=== PATIENT | female | born 1935 | race Caucasian/White ===

== ENCOUNTER 2020-04-18 04:51 | Observation (INO) ==
--- NOTE | 2020-04-13 07:27 | PAT Medication Instructions ---
Medication Instructions Date of Service April 13, 2020 Home Medications bumetanide 1 mg PO QAM cholecalciferol (vitamin D3) [Vitamin D3] 50 mcg PO QAM cyanocobalamin (vitamin B-12) [Vitamin B-12] 1,000 mcg PO QAM ibuprofen [Advil] 200 mg PO Q6H PRN levothyroxine 25 mcg PO QAM lisinopril 20 mg PO QAM magnesium 250 mg PO QAM psyllium husk [Fiber-Caps (psyllium husk)] 0.52 g PO QAM ASK your surgeon for instructions ibuprofen [Advil] 200 mg PO Q6H PRN DO NOT take the morning of surgery bumetanide 1 mg PO QAM cholecalciferol (vitamin D3) [Vitamin D3] 50 mcg PO QAM cyanocobalamin (vitamin B-12) [Vitamin B-12] 1,000 mcg PO QAM lisinopril 20 mg PO QAM magnesium 250 mg PO QAM psyllium husk [Fiber-Caps (psyllium husk)] 0.52 g PO QAM Take morning of surgery With a small sip of water, OTHERWISE NOTHING TO EAT OR DRINK AFTER MIDNIGHT: levothyroxine 25 mcg PO QAM Other Notes If you have any questions please call us at [phone] or [phone] or [phone] or [phone]
--- NOTE | 2020-04-13 13:14 | Anesthesiology Consultation ---
Date of Service April 13, 2020 Assessment & Plan (1) Encounter for pre-operative examination: COVID Status: As of 04/13 assessment, patient denies travel to endemic area, known exposure/sick contacts, or symptoms of COVID19. Patient instructed that they and their household members must follow strict social distancing guidelines, wear a mask in public and avoid travel for 14 days prior to surgery. Preoperative COVID19 testing completed today (04/13) at [facility]. Patient made aware to self-isolate as much as possible between COVID testing and surgery. PCP Clearance 04/14/20 = "The patient's preop lab testing, chest x-ray report and EKG reviewed. Labs and chest x-ray report were normal/acceptable. The patient's EKG shows poor R wave progression in the precordial leads and is unchanged from EKGs reviewed from 2018 and 2016 and is considered a normal variant and acceptable for the planned Ortho surgery. The patient is cleared for the planned Ortho surgery the week of April 17." Chart Review Chart Review: Acceptable Risk for Surgery and Patient seen in Pre Admission [facility] Teaching & Discussion Instructed NPO after midnight before surgery, except medications with 15 cc of water. Medication instructions provided according to the PAT guidelines. History Surgery Operation Date: 04/18/20 07:15 Proposed Procedures p Right Anterior Total Hip Arthroplasty - Lorenzo Foss DO Height/Weight Height: 5 ft 2.5 in Weight: 71.2 kg Allergies Allergy/AdvReac Type Severity Reaction Status Date / Time Iodinated Contrast Media Allergy Hives Verified 04/07/20 09:51 latex Allergy Blister Verified 04/07/20 10:18 Penicillins Allergy "swelling Verified 04/07/20 09:51 all over" Medications Home Medications Medication Instructions Recorded Confirmed Last Taken bumetanide 1 mg PO QAM 04/07/20 04/07/20 Unknown cholecalciferol (vitamin D3) 50 mcg PO QAM 04/07/20 04/07/20 Unknown [Vitamin D3] cyanocobalamin (vitamin B-12) 1,000 mcg PO QAM 04/07/20 04/07/20 Unknown [Vitamin B-12] ibuprofen [Advil] 200 mg PO Q6H PRN 04/07/20 04/07/20 Unknown levothyroxine 25 mcg PO QAM 04/07/20 04/07/20 Unknown lisinopril 20 mg PO QAM 04/07/20 04/07/20 Unknown magnesium 250 mg PO QAM 04/07/20 04/07/20 Unknown psyllium husk [Fiber-Caps 0.52 g PO QAM 04/07/20 04/07/20 Unknown (psyllium husk)] Past Medical History Medical History Degenerative disc disease Hearing deficit BL RAMOS HTN (hypertension) Hx SBO Did not require surgical intervention, just metamucil. Hypothyroidism Osteoarthritis Osteopenia Spinal stenosis Tinnitus Exercise / Class Metabolic Activity II 4-5 Yardwork/Stairs/Walk up hill (Denies CP or SOB with 1 FOS, using cane for ambulation for hip pain) Past Family History Family History Other No family history of adverse response to anesthesia Past Surgical History Surgical History History of appendectomy History of section History of colonoscopy History of esophagogastroduodenoscopy (EGD) History of left hip replacement History of parotidectomy History of right knee joint replacement History of tonsillectomy History of total abdominal hysterectomy and bilateral salpingo-oophorectomy Nausea and vomiting after administration of anesthetic agent Past Anesthesia History No Hx of Anesthesia Complications and No Family Hx of Anesthesia Complications History of PONV No Hx of Motion Sickness and History of PONV (remote history, no issues with SAB with TKA 06/2019) Social History Smoking Status: Never smoker Do You Dip or Chew Tobacco: No Hx Alcohol Use: Yes Alcohol type: hard liquor alcohol intake frequency: 0-2 drinks per day Hx Substance Use: No substance use type: does not use Review of Systems Pt denies any recent chest pain, shortness of breath, palpitations, cough, fever, URI, or uncontrolled acid reflux. Physical Exam Vital Signs BP: 146/79 P: 74bpm SPO2: 97% RA T: 97.8 F R: 16 ENMT Mouth: + dental bridge, + dentures (partial lower) and + dental restorations (permanent bridge upper front teeth); no chipped teeth and no loose teeth Thyromental Distance: < 3.5 Finger Breadths (3) Mallampati Class: III Neck normal visual inspection; neck extension not limited Respiratory normal respiratory effort Auscultation: lungs clear to auscultation bilaterally Cardiovascular Rate/Rhythm: regular rate and regular rhythm Heart Sounds: no murmur Extremities: no edema Testing Laboratory Results 04/13/20 13:35 04/13/20 13:35 PT 10.2 Seconds (9.0-12.0) 04/13/20 13:35 INR 1.0 (0.9-1.1) 04/13/20 13:35 APTT 27.4 Seconds (21.0-31.0) 04/13/20 13:35 Hemoglobin A1c 5.6 % (4.5-5.6) 04/13/20 13:35 Blood Type O Positive 04/13/20 13:35 Antibody Screen NEGATIVE 04/13/20 13:35 UA 04/14/20: negative. Electrocardiogram Date: 04/13/20 Findings: + NSR @ (64bpm) Anterior infarct, age undetermined. No previous EKGs available in [facility] system, but faxed for EKG from PCP from 06/2019, which shows PRWP. Chest X-Ray Date: 04/13/20 Findings: + NAD
--- NOTE | 2020-04-13 14:00 | XRay Report ---
XR chest Pre-admission PA/Lat CLINICAL HISTORY: Preoperative evaluation. COMPARISON STUDY: No previous studies for comparison. FINDINGS: Lung volumes are at the lower limits of normal. Lungs are clear. There is no pneumothorax o r pleural effusion. Cardiac size is normal. Mediastinal contours are normal. There is no evidence for pulmonary edema. IMPRESSION: No acute cardiopulmonary findings. ACT 112: Negative or not required by law. Electronically signed by: Ryan Galeano M.D. 04/13/2020 1:58 PM
[2020-04-13 15:00] LABS: Basophils # (auto) 0.04 K/uL (0-0.2); Basophils % (auto) 0.8 %; Eosinophils % (auto) 3.8 %; Hematocrit (blood only) 37.5 % (37-47); Immature Granulocytes # (auto) 0.01 K/uL (0.00-0.02); Immature Granulocytes % (auto) 0.2 %; Lymphocytes # (auto) 1.93 K/uL (1.2-3.4); Lymphocytes % (auto) 36.4 %; Mean Corpuscular Hemoglobin 32.6 pg (25-34); Mean Corpuscular Hgb Conc 34.7 g/dL (32-36); Mean Platelet Volume 11.1 fL (7.4-10.4); Monocytes # (auto) 0.46 K/uL (0.11-0.59); Monocytes % (auto) 8.7 %; Neutrophils # (auto) 2.66 K/uL (1.4-6.5); Neutrophils % (auto) 50.1 %; Platelet Count 231 K/uL (130-400); RDW Coefficient of Variation 13.3 % (11.5-14.5); RDW Standard Deviation 46.2 fL (36.4-46.3); Red Blood Count 3.99 M/uL (4.2-5.4)
[2020-04-13 15:07] LABS: Albumin Level 3.9 gm/dl (3.4-5.0); BUN Creatinine Ratio 25.7 (10-20); Calcium 9.6 mg/dl (8.5-10.1); Creatinine Clr Calc Pharmacy 32.8 ml/min; Est GFR (African American) 48.3; Est GFR (Non-African American) 41.6; Potassium 4.3 mmol/L (3.5-5.1)
[2020-04-13 15:11] LABS: Partial Thromboplastin Time 27.4 Seconds (21.0-31.0); Prothrombin Time 10.2 Seconds (9.0-12.0)
[2020-04-14 05:57] LABS: Estimated Average Glucose 114 mg/dl; Hemoglobin A1C 5.6 % (4.5-5.6)
--- NOTE | 2020-04-14 12:49 | Electrocardiogram Report ---
Test Reason : Blood Pressure : / mmHG Vent. Rate : 064 BPM Atrial Rate : 064 BPM P-R Int : 174 ms QRS Dur : 066 ms QT Int : 400 ms P-R-T Axes : 077 074 068 degrees QTc Int : 412 ms Normal sinus rhythm Anterior infarct , age undetermined Abnormal ECG No previous ECGs available Confirmed by Jose Soares ([id number]) on 04/14/2020 12:49:31 PM Referred By: Lorenzo Foss Confirmed By:Jose Soares
--- NOTE | 2020-04-15 17:41 | History & Physical Report ---
Date of Service April 18, 2020 Assessment & Plan (1) Degenerative joint disease of right hip: I have indicated the patient for right anterior total hip replacement. The risks, benefits and complications of surgery were explained to the patient which include but not limited to infection, acute blood loss, DVT/PE, injury to nerves, vessels, bone, soft tissue, arthrofibrosis, chronic pain, failure of the prosthesis, hip dislocation, leg length discrepancy, need for additional surgery, cardiac and pulmonary events and . The patient wished to proceed with surgery and informed consent was obtained at this time. We will plan for 325 mg ASA BID post-operatively for DVT prophylaxis. Upon discharge the patient will be discharged home with home health services. Appropriate clearances by PCP were obtained. History of Present Illness Chief Complaint: Right hip pain/djd Primary Care Provider: Maycol Swain The patient is a 84 year old female who presents with complaints of severe right hip pain and DJD. The patient has failed outpatient conservative treatments to this point which included NSAIDs, IA corticosteroid injection, PT and a home exercise/walking program. The patient's pain and limited function have progressed to the point where they severely hinder their activities of daily living and they no longer tolerate exercise programs. They are requesting to proceed with total hip replacement surgery. Allergies Allergy/AdvReac Type Severity Reaction Status Date / Time Iodinated Contrast Media Allergy Hives Verified 04/07/20 09:51 latex Allergy Blister Verified 04/07/20 10:18 Penicillins Allergy "swelling Verified 04/07/20 09:51 all over" Home Medications Home Medications Medication Instructions Recorded Confirmed Type bumetanide 1 mg PO QAM 04/07/20 04/07/20 History cholecalciferol (vitamin D3) 50 mcg PO QAM 04/07/20 04/07/20 History [Vitamin D3] cyanocobalamin (vitamin B-12) 1,000 mcg PO QAM 04/07/20 04/07/20 History [Vitamin B-12] ibuprofen [Advil] 200 mg PO Q6H PRN 04/07/20 04/18/20 History levothyroxine 25 mcg PO QAM 04/07/20 04/18/20 History lisinopril 20 mg PO QAM 04/07/20 04/18/20 History magnesium 250 mg PO QAM 04/07/20 04/07/20 History psyllium husk [Fiber-Caps 0.52 g PO QAM 04/07/20 04/18/20 History (psyllium husk)] Past Med/Surg History Medical History Degenerative disc disease Hearing deficit BL RAMOS HTN (hypertension) Hx SBO Did not require surgical intervention, just metamucil. Hypothyroidism Osteoarthritis Osteopenia Spinal stenosis Tinnitus Surgical History History of appendectomy History of section History of colonoscopy History of esophagogastroduodenoscopy (EGD) History of left hip replacement History of parotidectomy History of right knee joint replacement History of tonsillectomy History of total abdominal hysterectomy and bilateral salpingo-oophorectomy Nausea and vomiting after administration of anesthetic agent Family History Other No family history of adverse response to anesthesia Social History Smoking Status: Never smoker Second Hand Exposure: Yes (as a child); Do You Dip or Chew Tobacco: No; Hx Alcohol Use: Yes Alcohol type: hard liquor Hx Substance Use: No Preferred Language: [place] Communication Ability: Effective Co Chairman Required: No Beliefs That Will Affect Care: None Current Living Situation: Spouse Feels Safe at Home: Yes Safety Concerns: Feels Safe At This Time Assistive Devices: Cane, Glasses and Hearing Aid - Bilateral Assistive Devices Comment: lower partial Review of Systems Review of Systems: All systems reviewed & are unremarkable except as noted in HPI & below Constitutional: as per Subjective / HPI Physical Exam Physical Exam: RLE NVSI +EHL/FHL/TA/GS SILT grossly, +2 DP pulse, compartments soft NT, limited painful ROM of the hip, antalgic gait. Constitutional: WD/WN, vitals as above Eyes: PERRL, conjunctivae normal, anicteric sclerae ENMT: external ear and nose normal, oropharynx normal Neck: trachea midline, no thyromegaly Respiratory: normal respiratory effort, lungs clear to auscultation Cardiovascular: RRR, no murmur, no edema Gastrointestinal (Abdomen): normal bowel sounds, soft, nontender, no hepatosplenomegaly Musculoskeletal: no cyanosis or clubbing, extremities motor strength 5/5 Skin: no rashes, warm and dry Neurologic: patellar DTR's 2+ bilat, sensation intact Psychiatric: A+Ox3, euthymic affect Lymphatic: no cervical or axillary lymphadenopathy Results & Data Results & Data ([facility]) Diagnostic Findings Multiple views of the hip demonstrates severe DJD with complete loss of the joint space. +osteophytes, +sclerosis, +subchondral cysts. Pre Admission Testing Addendum Laboratory Results 04/13/20 13:35 04/13/20 13:35 PT 10.2 Seconds (9.0-12.0) 04/13/20 13:35 INR 1.0 (0.9-1.1) 04/13/20 13:35 APTT 27.4 Seconds (21.0-31.0) 04/13/20 13:35 Hemoglobin A1c 5.6 % (4.5-5.6) 04/13/20 13:35 Blood Type O Positive 04/13/20 13:35 Antibody Screen NEGATIVE 04/13/20 13:35
[2020-04-18] MEDS ORDERED: TRANEXAMIC ACID 1,000 MG **IV Intra-op IV SCH (06:00)
[2020-04-18] MEDS ORDERED: ROPIVACAINE 0.5% HCL/PF 150 MG, BUPIVACAINE 0.5% MPF 30 ML, EPINEPHrine 30MG/30ML (OR U... INFIL SCH (06:00)
[2020-04-18] MEDS ORDERED: CeleBREX 200 MG CAP PO SCH (06:00)
[2020-04-18] MEDS ORDERED: LR 15ML/HR IV SCH (06:00)
[2020-04-18] MEDS ORDERED: dexAMETHasone 4 MG TAB PO SCH (06:00)
[2020-04-18] MEDS ORDERED: ACETAMINOPHEN 500 MG TAB PO SCH (06:00)
[2020-04-18] MEDS ORDERED: GABAPENTIN 300 MG CAP PO SCH (06:00)
[2020-04-18] MEDS ORDERED: TRANEXAMIC ACID 1,000 MG **IV Pre-op IV SCH (06:00)
[2020-04-18] MEDS ORDERED: METOCLOPRAMIDE HCL 10 MG TABLET PO SCH (06:00)
[2020-04-18] MEDS ORDERED: PROPOFOL IV EMULSION 10 MG/ML 20 ML VIAL IV ONE ×2 (06:24→08:45)
[2020-04-18] MEDS ORDERED: BUPIVACAINE 0.5 % 5 MG/1 ML PF 10ML VIAL ONE (06:25)
[2020-04-18] MEDS ORDERED: fentaNYL citrate 100 MCG/2 ML VIAL ONE (06:25)
[2020-04-18] MEDS ORDERED: MIDAZOLAM HCL 1 MG/ML 2ML VIAL ONE (06:25)
--- NOTE | 2020-04-18 06:57 | History & Physical Bridge Note ---
Date of Service April 18, 2020 History & Physical Bridge Note I have examined the patient, reviewed the History & Physical and in the interval since the performance of the History & Physical I have noted the following changes of clinical significance: no changes noted
[2020-04-18] MEDS ORDERED: CLINDAMYCIN 900 MG in DEXTROSE 5% 50 ML IV ONE (07:00)
[2020-04-18] MEDS ORDERED: BACITRACIN INJ 50,000 UNIT VIAL ONE (07:01)
[2020-04-18] MEDS ORDERED: ORTHO JOINT ANESTHETIC ONE (07:01)
[2020-04-18] MEDS ORDERED: ONDANSETRON INJ 2 MG/ML 2 ML VIAL IV PRN ×2 (07:01→11:14)
[2020-04-18] MEDS ORDERED: ATROPINE SULFATE 0.1 MG/ML 10ML SYR IV PRN (07:01)
[2020-04-18] MEDS ORDERED: ePHEDrine sulfate 50 MG/ML AMP IV PRN (07:01)
[2020-04-18] MEDS ORDERED: HYDROmorphone INJ 1 MG/ML SYRINGE IV PRN (07:01)
--- NOTE | 2020-04-18 09:30 | Post Operative Brief Note ---
Immediate Post Op Note v1 Date of Surgery April 18, 2020 Pre & Post Diagnosis Operation Date: 04/18/20 07:15 Pre-Op Diagnosis: Unilateral Primary Osteoarthritis, Right Hip Post-Op Diagnosis: Unilateral Primary Osteoarthritis, Right Hip I identified the patient and participated in the time-out.: Yes Procedure Operation Date: 04/18/20 07:15 Actual Procedures p Right Anterior Total Hip Arthroplasty(Right) - Lorenzo Foss DO Surgeon Lorenzo Foss DO Fish And Wildlife Biologist Giuseppe Cruz Estimated Blood Loss 185 Findings Consistent with Post-Op Diagnosis Fluids 600 cc LR Specimens femoral head Anesthesia Type Spinal MAC Complications none Disposition Disposition: Recovery Room Overlapping Procedure I was present for: the critical portions of procedure. I was immediately available: during the entire case. Back up surgeon: was not required during procedure.
--- NOTE | 2020-04-18 09:32 | Operative Report ---
Post Operative Report Pre & Post Diagnosis Operation Date: 04/18/20 07:15 Pre-Op Diagnosis: Unilateral Primary Osteoarthritis, Right Hip Post-Op Diagnosis: Unilateral Primary Osteoarthritis, Right Hip I identified the patient and participated in the time-out.: Yes Procedure Operation Date: 04/18/20 07:15 Actual Procedures p Right Anterior Total Hip Arthroplasty(Right) - Lorenzo Foss DO Surgeon Lorenzo Foss DO Cost Specialist Giuseppe Cruz Estimated Blood Loss 185 Findings Consistent with Post-Op Diagnosis Specimens Femoral headfemoral head Anesthesia Type Spinal MAC Complications none Disposition Disposition: Recovery Room Indications The patient is a 84-year-old female who presents with severe progressive right hip DJD who has failed outpatient conservative treatments. I indicated the patient for a anterior total hip replacement and the risks and benefits were explained in detail which include but not limited to infection, bleeding, blood clot, damage to surrounding bone, nerves, vessels, soft tissue, hip dislocation, failure of the prosthesis, leg length discrepancy, need for additional surgery and . The patient agreed to proceed with replacement of the hip and informed consent was obtained. Appropriate clearances were obtained. Description of Procedure COMPONENTS USED: Mar & [email or web address].usology hip system: Acetabulum size 52, femur size 6 high offset, femoral head 36+0, liner 5236, acetabular screw 25 mm x 1. DESCRIPTION OF PROCEDURE: Following satisfactory spinal anesthesia, the patient was placed supine on the OR table. The left leg was placed in the well leg chu and the right leg in the traction device. The right leg was prepared with ChloraPrep and draped sterilely. A surgical timeout was performed, patient identified and site kenny verified. Appropriate antibiotics were given. A standard anterior approach in the interval between the sartorius and tensor muscles was performed. Dissection was carried down through subcutaneous tissues. Electrocautery was utilized for hemostasis. Circumflex femoral vessels were identified, tied and ligated. The anterior capsular fat pad was removed and the capsulotomy was performed revealing the arthritic femoral neck and head. A femoral neck cut was made with reciprocating saw and the bone fragments removed. The acetabular self-retraining retractor was placed. Ac etabular reaming was completed under fluoroscopic guidance, a 52 shell was impacted into an anatomic position and secured with a dome screw. Local anesthetic was placed and following irrigation, the polyethylene liner was placed. The femur was placed into position of external rotation, extension and adduction. Femoral canal was prepared up to the size 6 high offset. Trial reduction with a 36+0 neck length head showed good soft tissue tension, leg lengths restored, and good fit and fill of the proximal canal using fluoroscopic landmarks. The hip was dislocated. The trial component was removed. The final implant was placed. The hip was irrigated with sterile saline solution and reduced. A Betadine soak was performed. After 3 minutes, the hip was once more irrigated with copious sterile saline solution with bacitracin. Aditi-incisional soft tissue was injected utilizing [place] Orthomix which includes a combination of Ropivicaine 0.5% 150mg, Bupivicaine 0.5%/Epinephrine 1:200,000 30ml, Toradol 30mg, Dexamethasone 4mg, Ketamine 10mg, Clonidine 100mcg and NSS 30ml solution. The capsule was then closed with 1-0 Vicryl interrupted figure of eight sutures. The fascia was closed with a running suture of #1 Vicryl, the subcutaneous tissues with 2-0 Vicryl and the skin with was closed with eun. A sterile dry dressing was applied which included Xeroform 4 x 4's ABDs and paper tape. The patient tolerated the procedure well and was transported to PACU in stable condition. Due to the complex nature of the procedure, the entire surgery was performed with the operational assistance of Giuseppe Cruz PA-C. The senior agricultural assistant, under direct supervision, was involved in the actual performance of all aspects of the surgical procedure including patient positioning, hemostasis, tissue retraction, instrument management and wound closure. I attest to the content of the Intraoperative Record and any orders documented therein. Any exceptions are noted below.
--- NOTE | 2020-04-18 09:53 | Fluoroscopy Report ---
FL hip RT 1V CLINICAL HISTORY: RT ANTERIOR HIP COMPARISON STUDY: FLUOROSCOPY TIME: 53 seconds. NUMBER OF FLUOROSCOPIC IMAGES: 2 FINDINGS: 2 intraoperative fluoroscopic spot images reveal bilateral total hip arthroplasties. Histor y does the right hip has been replaced today. There is no dislocation. IMPRESSION: Postsurgical changes of a total right hip arthroplasty. No evidence of dislocation. ACT 112: Negative or not required by law. Electronically signed by: Mendel Belcher M.D. 04/18/2020 9:52 AM
--- NOTE | 2020-04-18 10:36 | XRay Report ---
XR hip 1V RT w pelvis CLINICAL HISTORY: Postoperative evaluation. COMPARISON: None FINDINGS: Alignment of the total right hip arthroplasty is anatomic. There is no periprosthetic frac ture or unexpected radiopaque foreign body. There are skin eun. There is an acetabular screw. Lef t hip arthroplasty is noted. IMPRESSION: Expected findings following total right hip arthroplasty. ACT 112: Negative or not required by law. Electronically signed by: Ryan Galeano M.D. 04/18/2020 10:35 AM
--- NOTE | 2020-04-18 10:38 | Anesthesiology Progress Note ---
Date of Service April 18, 2020 Anesthesia Post Procedure Vital Signs Vital Signs: Temp Pulse Pulse Resp BP Pulse Ox 04/18/20 10:35 36.4 C L 55 L 15 116/59 L 95 04/18/20 10:25 75 14 130/73 94 04/18/20 10:15 63 13 122/69 93 04/18/20 10:05 80 16 123/71 94 04/18/20 09:55 74 14 126/66 95 04/18/20 09:48 36.3 C L 78 14 117/65 99 04/18/20 06:08 72 20 170/87 H 98 04/18/20 05:41 36.8 C 77 20 184/94 H 98 Pain Intensity Right Hip: Pain Intensity: 0 Transfer of Care Handoff Completed per policy Notes Mental Status: alert / awake / arousable Patient Amnestic to Procedure: Yes Nausea / Vomiting: adequately controlled Pain: adequately controlled Airway Patency, RR, SpO2: stable & adequate BP & HR: stable & adequate Hydration State: stable & adequate Neuraxial Anesthesia: was administered and sensory block is resolving Anesthetic Complications: no major complications apparent
[2020-04-18] MEDS ORDERED: NALOXONE HCL 0.4 MG/1 ML VIAL/CARP IV PRN (11:14)
[2020-04-18] MEDS ORDERED: bisacodyL 10 MG SUPP PR PRN (11:14)
[2020-04-18] MEDS ORDERED: METOCLOPRAMIDE HCL INJ 5 MG/ML 2 ML VIAL IV PRN (11:14)
[2020-04-18] MEDS ORDERED: HYDROmorphone INJ 0.5 MG/0.5 ML SYR IV PRN (11:14)
[2020-04-18] MEDS ORDERED: MAGNESIUM HYDROXIDE SUSP 30 ML UDC PO PRN (11:14)
[2020-04-18] MEDS: KETOROLAC TROMETHAMINE 15 MG/ML VIAL IV SCH ×3 (12:56→23:31)
[2020-04-18] MEDS: SODIUM CHLORIDE 0.9% 1000ML 1,000 ML IV SCH ×2 (12:57→23:39)
[2020-04-18] MEDS: HYDROCODONE/ACETAMOPHEN 5/325MG TAB PO PRN ×2 (15:26→20:42)
[2020-04-18] MEDS: CLINDAMYCIN 600 MG in DEXTROSE 5% 50 ML IV SCH ×2 (16:08→23:30)
--- NOTE | 2020-04-18 17:43 | Orthopedic Progress Note ---
Date of Service April 18, 2020 Assessment & Plan (1) Degenerative joint disease of right hip: Status post right anterior total hip arthroplasty -Clinda x24 -DVT prophylaxis: SCDs, teds, ASA twice daily -Weight-bear as tolerated right lower extremity -PT/OT -Postoperative x-ray demonstrates a well line well fixed prosthesis without fracture or dislocation -A.m. labs -DC planning Admission and Anticipated Discharge Date Admission Date: April 18, 2020 Subjective Post Operative Progress Note Patient seen sitting up in bed, comfortable, denies complaints, pain well controlled, no acute issues. Review of Systems Review of Systems: All systems reviewed & are unremarkable except as noted in HPI & below Constitutional: as per Subjective / HPI Physical Exam Physical Exam: RLE NVSI +EHL/FHL/TA/GS SILT grossly, +2 DP pulse, compartments soft NT, dressing cdi. Constitutional: WD/WN, vitals as above Results & Data ([place]) Vital Signs (Past 12 Hours) Vital Signs Temp Pulse Pulse Resp BP Pulse Ox 04/18/20 15:44 36.8 C 71 18 138/70 95 04/18/20 13:57 36.4 C L 69 16 138/74 96 04/18/20 13:00 96 H 16 149/73 H 96 04/18/20 12:00 36.2 C L 61 16 144/73 H 99 04/18/20 11:30 36.2 C L 55 L 16 149/77 H 99 04/18/20 11:00 36.4 C L 75 16 125/75 97 04/18/20 10:50 58 L 13 122/62 96 04/18/20 10:35 36.4 C L 55 L 15 116/59 L 95 04/18/20 10:25 75 14 130/73 94 04/18/20 10:15 63 13 122/69 93 04/18/20 10:05 80 16 123/71 94 04/18/20 09:55 74 14 126/66 95 04/18/20 09:48 36.3 C L 78 14 117/65 99 04/18/20 06:08 72 20 170/87 H 98 04/18/20 05:41 36.8 C 77 20 184/94 H 98
[2020-04-18] MEDS: DOCUSATE SODIUM 100 MG CAP PO SCH (20:36)
[2020-04-18] MEDS ORDERED: SENNA 8.6 MG TAB PO SCH (21:00)
[2020-04-19] MEDS: HYDROCODONE/ACETAMOPHEN 5/325MG TAB PO PRN ×3 (02:42→13:08)
[2020-04-19] MEDS: KETOROLAC TROMETHAMINE 15 MG/ML VIAL IV SCH (05:47)
[2020-04-19] MEDS ORDERED: LEVOTHYROXINE SODIUM 25 MCG TABLET PO SCH (06:30)
[2020-04-19 06:34] LABS: Basophils # (auto) 0.02 K/uL (0-0.2); Basophils % (auto) 0.2 %; Hematocrit (blood only) 30.6 % (37-47); Hemoglobin 10.4 g/dL (12.0-16.0); Immature Granulocytes # (auto) 0.03 K/uL (0.00-0.02); Immature Granulocytes % (auto) 0.2 %; Lymphocytes # (auto) 2.12 K/uL (1.2-3.4); Lymphocytes % (auto) 16.8 %; Mean Corpuscular Hemoglobin 31.8 pg (25-34); Mean Corpuscular Volume 93.6 fL (80-100); Mean Platelet Volume 10.7 fL (7.4-10.4); Monocytes # (auto) 1.18 K/uL (0.11-0.59); Monocytes % (auto) 9.3 %; Neutrophils # (auto) 9.29 K/uL (1.4-6.5); Neutrophils % (auto) 73.5 %; Platelet Count 237 K/uL (130-400); RDW Coefficient of Variation 13.2 % (11.5-14.5); RDW Standard Deviation 45.1 fL (36.4-46.3); Red Blood Count 3.27 M/uL (4.2-5.4); White Blood Count 12.64 K/uL (4.8-10.8)
[2020-04-19 07:01] LABS: BUN Creatinine Ratio 23.2 (10-20); Creatinine Clr Calc Pharmacy 31.8 ml/min; Est GFR (African American) 45.5; Est GFR (Non-African American) 39.3; Potassium 3.9 mmol/L (3.5-5.1)
[2020-04-19] MEDS: DOCUSATE SODIUM 100 MG CAP PO SCH (08:55)
[2020-04-19] MEDS ORDERED: BUMETANIDE 1 MG TAB PO SCH (09:00)
[2020-04-19] MEDS ORDERED: MULTIVITAMIN TAB PO SCH (09:00)
[2020-04-19] MEDS ORDERED: lisinopriL 20 MG TAB PO SCH (09:00)
[2020-04-19] MEDS ORDERED: ASPIRIN 325 MG ECTAB PO SCH (09:00)
--- NOTE | 2020-04-19 09:16 | Orthopedic Progress Note ---
Date of Service April 19, 2020 Assessment & Plan (1) Degenerative joint disease of right hip: Status post right anterior total hip arthroplasty POD#1 -Clinda x24 -DVT prophylaxis: SCDs, teds, ASA twice daily -Weight-bear as tolerated right lower extremity -PT/OT -Postoperative x-ray demonstrates a well line well fixed prosthesis without fracture or dislocation -A.m. labs - as above, hgb 10.4, Cr 1.24, baseline 1.21 -DC planning - home with Admission and Anticipated Discharge Date Admission Date: April 18, 2020 Subjective Post Operative Progress Note Patient seen sitting up in bed, comfortable, denies complaints, pain well controlled, no acute issues. Denies F/C/N/V/SOB/CP. Review of Systems Review of Systems: All systems reviewed & are unremarkable except as noted in HPI & below Constitutional: as per Subjective / HPI Physical Exam Physical Exam: RLE NVSI +EHL/FHL/TA/GS SILT grossly, +2 DP pulse, compartments soft NT, dressing cdi. Constitutional: WD/WN, vitals as above Results & Data ([facility]) Vital Signs (Past 12 Hours) Vital Signs Temp Pulse Resp BP Pulse Ox 04/19/20 07:20 36.4 C L 66 16 112/61 100 04/19/20 02:42 36.9 C 71 16 117/70 97 04/18/20 23:47 36.4 C L 81 16 149/72 H 95 Laboratory Results 04/19/20 04/19/20 Range/Units 06:10 06:10 WBC 12.64 H (4.8-10.8) K/uL RBC 3.27 L (4.2-5.4) M/uL Hgb 10.4 L (12.0-16.0) g/dL Hct 30.6 L (37-47) % MCV 93.6 (80-100) fL MCH 31.8 (25-34) pg MCHC 34.0 (32-36) g/dL RDW Std Deviation 45.1 (36.4-46.3) fL RDW Coeff of Rubi 13.2 (11.5-14.5) % Plt Count 237 (130-400) K/uL MPV 10.7 H (7.4-10.4) fL Immature Gran % (Auto) 0.2 % Neut % (Auto) 73.5 % Lymph % (Auto) 16.8 % [place] % (Auto) 9.3 % Eos % (Auto) 0.0 % Baso % (Auto) 0.2 % Neut # (Auto) 9.29 H (1.4-6.5) K/uL Lymph # (Auto) 2.12 (1.2-3.4) K/uL [place] # (Auto) 1.18 H (0.11-0.59) K/uL Eos # (Auto) 0.00 (0-0.5) K/uL Baso # (Auto) 0.02 (0-0.2) K/uL Immature Gran # (Auto) 0.03 H (0.00-0.02) K/uL Sodium 136 (136-145) mmol/L Potassium 3.9 (3.5-5.1) mmol/L Chloride 105 (98-107) mmol/L Carbon Dioxide 24 (21-32) mmol/L Anion Gap 7.0 (3-11) BUN 30 H (7-18) mg/dl Creatinine 1.27 H (0.6-1.2) mg/dl Est Cr Clr Drug Dosing 31.8 ml/min Est GFR ( Amer) 45.5 Est GFR (Non-Af Amer) 39.3 BUN/Creatinine Ratio 23.2 H (10-20) Glucose 135 H (70-99) mg/dl Calcium 8.0 L (8.5-10.1) mg/dl
[2020-04-19] MEDS ORDERED: CeleBREX 200 MG CAP PO SCH (21:00)
--- NOTE | 2020-04-20 23:12 | Discharge Summary ---
Date of Service April 19, 2020 Admission HPI Per Admitting Provider The patient is a 84 year old female who presents with complaints of severe right hip pain and DJD. The patient has failed outpatient conservative treatments to this point which included NSAIDs, IA corticosteroid injection, PT and a home exercise/walking program. The patient's pain and limited function have progressed to the point where they severely hinder their activities of daily living and they no longer tolerate exercise programs. They are requesting to proceed with total hip replacement surgery. Principal Diagnosis Right anterior total hip replacement -Right hip DJD Discharge Exam RLE NVSI +EHL/FHL/TA/GS SILT grossly, +2 DP pulse, compartments soft NT, dressing cdi. Constitutional WD/WN, vitals as above Discharge Data Allergies Allergy/AdvReac Type Severity Reaction Status Date / Time Iodinated Contrast Media Allergy Hives Verified 04/07/20 09:51 latex Allergy Blister Verified 04/07/20 10:18 Penicillins Allergy "swelling Verified 04/07/20 09:51 all over" Consultations 04/19/20 08:00 Consult Case Management - Discharge Planning Routine Procedures Performed Operation Date: 04/18/20 07:15 Actual Procedures p Right Anterior Total Hip Arthroplasty(Right) - Lorenzo Foss DO Ordered Studies 04/18/20 07:15 FL fluoroscopy <1hr Routine FL hip RT 1V Routine Hospital Course (1) Degenerative joint disease of right hip: The patient is a 84 -year-old female who presents with long standing history of severe right hip DJD and failed outpatient conservative treatments. The patient's symptoms have progressed to the point where it has been difficult to perform even normal activities of daily living. I indicated the patient for a right anterior total hip arthroplasty, the risks, benefits and complications of the procedure include but not limited to infection, bleeding, damage to bone, nerves, vessels, surrounding soft tissue, may develop blood clots, loss of function, leg length discrepancy, dislocation, failure of the components, loosening of the components, the need for additional surgery and . The patient wished to proceed with surgery at this time and informed consent was obtained. Hospital Course: On 04/18/20 the patient was taken to the operating room, adequate anesthesia administered and underwent a right anterior total hip arthroplasty. The patient tolerated the procedure well and was taken to the PACU in stable condition. Post-operatively the patient was started on a DVT ppx medication and given appropriate IV antibiotics. Consults were placed to physical therapy, occupational therapy and case management. On POD#1, the patient did well overnight and their pain was well controlled. Labs were drawn and the Hgb was 10.4. The patient progressed well with PT. Dressings were changed at this time and the incision was clean, dry and intact. On POD#2, The patients hospital stay was relatively uneventful and they were deemed stable by the orthopedic team and consultants to be discharged home with HH on 04/19/20. Discharge Instructions: Upon discharge the patient may weight bear as tolerates through their operative extremity. They were instructed to keep the incision clean and dry at all times. The patient may shower but should not submerge the incision, avoid bathing, pools and hot tubes. The patient was given a script for pain medication and should take as instructed. The patient was given a script for DVT ppx 325mg ASA BID and should take as directed. The patient was instructed to not drive or travel for long distances until cleared to do so. If the patient develops any symptoms of fevers, chills, nausea, vomiting, increased redness, swelling, pain or drainage from the surgical site, they should notify the office and/or proceed to the nearest emergency room. The patient should follow up in 10-14 days after surgery for their routine post-operative follow-up appointment and should call the office to confirm the date and time. Status post right anterior total hip arthroplasty POD#1 -Clinda x24 -DVT prophylaxis: SCDs, teds, ASA twice daily -Weight-bear as tolerated right lower extremity -PT/OT -Postoperative x-ray demonstrates a well line well fixed prosthesis without fracture or dislocation -A.m. labs - as above, hgb 10.4, Cr 1.24, baseline 1.21 -DC planning - home with Total Time Total Time Spent Total Time Spent (In Minutes): 30 Discharge Plan Discharge Items Patient Disposition: Home - Home Health Services Reason For Visit: Unilateral Primary Osteoarthritis, Right Hip Discharge Diagnosis: Right anterior total hip replacement -Right hip DJD Condition on Discharge: Good Activity: Per Instructions section Lifting: Wait until after follow-up appointment Bathing: Keep incision dry Bathing Comment: No bathing, pools or hot tubs Sexual Activity: Wait until after follow-up appointment Exercise/Sports: Wait until after follow-up appointment Driving/Machine Use: No driving Weightbearing: Full weightbearing Non-emergency contact: Primary Care Provider and Surgeon Call non-emergency contact if: you have any medication questions, your symptoms worsen, your pain is not controlled, your pain is worsening, your pain is unusual for you, your pain is concerning for you, you have a fever, your temperature is above 101, your wound has increased redness, your wound has increased drainage and your wound pain has increased Follow-up/Referrals: Maycol Swain [Primary Care Provider] - Diet: Regular Addtl Attending Provider Instructions: ACTIVITY RECOMMENDATIONS: SELF CARE INSTRUCTIONS AFTER TOTAL HIP REPLACEMENT : Direct Anterior Approach Until the incision and soft tissues around your hip have healed, there is a possibility that the hip prosthesis could dislocate. A. Hip flexion ( Up & Down out of chair or steps ) may be difficult. This is normal. B. Numbness in front of the thigh is also normal for a few weeks. C. Use hand rails when walking on stairs. D. Wear low heeled shoes with non-slip soles. E. Be sure that your floors are free of things that could trip you - throw rugs, electrical cords, small objects. Avoid wet and waxed floors, especially with crutches and canes. F. Try to walk several times a day with rest periods between. G. Continue with all the exercises taught to you in the hospital. Again, make walking a part of your daily routine. SPECIAL CARE INSTRUCTIONS: VERY IMPORTANT TO READ AND REVIEW A. You may still be at risk for phlebitis and blood clots. 1. Wear surgical stockings (IVANEY hose) for 2 weeks after surgery to improve circulation and reduce swelling. 2. Take Aspirin 325mg twice daily for 4 weeks or as directed by your doctor. This is your blood thinner. 3. High risk patients may be prescribed a stronger blood thinner if necessary. 4. If you are on Coumadin normally, your family doctor/behavioral consultant should monitor your blood work. Expect a phone call the day of or the day after bloodwork is drawn to adjust your dosage. B. You must take antibiotics before having dental work, bladder, bowel and other surgery. Your doctor will provide you with a permanent card to carry describing precautions. C. Call [facility] if you have a fever, redness or swelling around the incision, cloudy drainage from incision, or sudden increase in pain in your hip, not relieved by your regular pain medication. D. Please call the office at if you have any concerns or questions about your operation or recovery. * YOU MAY SHOWER, NO TUB BATHS UNTIL CLEARED BY YOUR DOCTOR. - Keep an extra close eye on the top portion of your incision. Be sure to keep clean & dry. * WEAR VIANEY HOSE 20 HOURS PER DAY FOR 2 WEEKS. * YOU MAY PROGRESS FROM A WALKER, TO A CANE, TO INDEPENDENT AT YOUR OWN PACE. * MOST PATIENTS WILL HAVE HOME NURSING FOR THERAPY. IF YOU DECIDE TO DO OUTPATIENT PHYSICAL THERAPY, PLEASE SCHEDULE THIS 3 TIMES PER WEEK. * DERMABOND Prineo- This is a mesh tape dressing that is covered with glue. It should remain in place until the incision is properly healed, usually 10-14 days. This dressing is designed to naturally slough off. You may trim the excess mesh tape as it peels off. Incision may be briefly wet in a shower. Dry immediately by blotting with a clean, dry towel. Do not bath or swim until instructed by your doctor. Do not scratch, rub, or pick at the dressing. Do not apply any topical ointments or lotions until dressing is completely removed and/or instructed by your doctor. There may be a small piece of suture material at one end of your incision. Do not pull or trim this. If it is bothersome or catching on clothing, you may cover it with a band-aid. FOLLOW UP VISIT: If appointment is not already scheduled: Please call [facility] to make a follow-up appointment for 2 weeks after your surgery at . Pending Studies at Discharge: No Stand-Alone Forms: [employer], Opioid Pain Management, Smoking Cessation Medications and DC Order Prescriptions: New celecoxib [Celebrex] 200 mg Capsule 200 mg PO BID PRN (Reason: pain/inflammation) Qty: 28 RF: 0 hydrocodone-acetaminophen [Anthony] 5-325 mg Tablet 1 tab PO Q6H MDD 4 PRN (Reason: pain) Qty: 30 RF: 0 aspirin [Ecotrin] 325 mg Tablet,Delayed Release (Dr/Ec) 325 mg PO BID Qty: 56 RF: 0 sennosides [Senokot] 8.6 mg Tablet 17.2 mg PO HS PRN (Reason: constipation) Qty: 28 RF: 0 Continued lisinopril 20 mg Tablet 20 mg PO QAM RF: 0 cyanocobalamin (vitamin B-12) [Vitamin B-12] 1,000 mcg Tablet 1,000 mcg PO QAM RF: 0 levothyroxine 25 mcg Tablet 25 mcg PO QAM RF: 0 bumetanide 1 mg Tablet 1 mg PO QAM RF: 0 magnesium 250 mg Tablet 250 mg PO QAM RF: 0 psyllium husk [Fiber-Caps (psyllium husk)] 0.52 gram Capsule 0.52 g PO QAM RF: 0 cholecalciferol (vitamin D3) [Vitamin D3] 50 mcg (2,000 unit) Capsule 50 mcg PO QAM RF: 0 Discontinued ibuprofen [Advil] 200 mg Tablet 200 mg PO Q6H PRN (Reason: Pain) RF: 0 Discharge Orders: Discharge Order (Routine); Ordered 04/19/20 Ordered By: Kevin Machado Admission Data Admit Date/Time: 04/18/20 09:59 Attending Provider: Lorenzo Foss Admit Provider: Lorenzo Foss Primary Care Provider: Maycol Swain Other Providers: [facility],Home [facility] Other Interventions: Discharge Summary Assessment (RN) Last Done: 04/19/20 13:28
== END 2020-04-19 14:13 | disposition home health service (06) ==
LOC: ASU 04:51 → 3E 04:51